=== PATIENT | female | born 2000 | race Caucasian/White ===

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

== ENCOUNTER 2021-04-30 23:02 | Outpatient (CLI) | payer OTHER ==
[2021-05-01 00:04] VITALS: BP 123/77; PULSE 100; RESP 16; TEMP 96.7
--- NOTE | 2021-05-19 12:27 | P.MSEPDOC ---
Presenting Problems - Arrival Data Date of Arrival on Unit: 04/30/21 Time of Arrival on Unit: 23:02 Mode of Transport: Ambulatory - Complaint OB-Reason for Admission/Chief Complaint: Rule Out PROM Comment: Pt presents to triage stating she thinks her water broke around 1900. Pt reports clear fluid. Pt states she did not feel a gush of fluid. Pt reports she just feels like she "leaks" every now and then if baby moves or if she moves a certain way Medical History - Information : 2 Para: 1 Term: 1 : 0 Abortions: Spontaneous or Elective: 0 Number of Living Children: 1 - Gestational Age Gestational Age by DAPHNE (wks/days): 35 Weeks and 0 Days Review of Systems - Review of Systems Constitutional: No problems Breast: No problems ENT: No problems Cardiovascular: No problems Respiratory: No problems Gastrointestinal: No problems Genitourinary: No problems Musculoskeletal: No problems Neurological: No problems Skin: No problems Vital Signs - Temperature Temperature: 96.7 F Temperature Source: Temporal Artery Scan - Pulse Pulse Oximetery Pulse Rate: 100 Pulse Assessment Method: Automatic Cuff - Respirations Respiratory Rate: 16 Oxygen Delivery Method: Room Air O2 Sat by Pulse Oximetry: 98 - Blood Pressure Right Arm Blood Pressure: 123/77 Blood Pressure Mean: 92 Blood Pressure Source: Automatic Cuff Medical Screen Scoring - Cervical Exam Dilation (cm): 0.5 Effacement (%): 60 Station: -1 Membranes: Intact - Uterine Contractions Frequency From (mins): 3 Frequency To (mins): 14 Duration From (seconds): 50 Duration To (seconds): 60 Intensity: Mild Resting: Soft to palpation - Assessment - Baby A Baseline FHR: 140 Heart Rate - NICHD Category: Category I (Normal) NST: Reactive Physician Notification - Physician Notified Physician Notified Date: 04/30/21 Physician Notified Time: 23:39 Physician: Ronaldo Higuera Order Received: Yes - Notification Comment Comment: Dr. Higuera called re: pt c/o SROM around 1900 with no gush of fluid but more. of an intermittent leaking, negative amnisure, reactive NST, contx pattern and pain. Orders received to perform SVE and if cervix remains unc hanged from check in the office. pt can be d/c home Maternal Triage Index - Maternal Triage Index Presenting for scheduled procedure w/no complaint: No - Stat/Priority 1 Stat Priority 1: No - Urgent/Priority 2 Urgent Priority 2: No - Prompt/Priority 3 Prompt Priority 3: Yes Criteria Met for Priority 3: c/o early labor signs and/or c/o SROM/leaking 34-36 6/7 weeks Disposition - Disposition OB Disposition: Discharge to home Discharge Date: 04/30/21 Discharge Time: 23:45 I agree with the RN Medical Screening Exam: Yes Physician's MSE Comment: I have neither seen nor examined the patient. Case reviewed; plan agreed upon as documented in EMR&OBIX.: Yes Diagnosis: RELATED CONDITIONS, UNSPECIFIED, THIRD TRIMESTER
== END 2021-04-30 23:45 | disposition home or self-care (01) ==
LOC: FBPOP 23:02
PROVIDERS: ATTEND Obstetrics & Gynecology
DX: O26.93 Pregnancy related conditions, unspecified, third trimester (principal); Z3A.35 35 weeks gestation of pregnancy
CPT/HCPCS: 59025; 84112; G0463; 99213

== ENCOUNTER 2021-05-29 12:20 | Inpatient (IN) | payer OTHER ==
[2021-05-30] MEDS ORDERED: OXYTOCIN 10 UNIT/ML 1 ML VIAL IM PRN (06:45)
[2021-05-30] MEDS ORDERED: CARBOPROST TROMETHAMINE 250 MCG/ML 1 ML AMP IM PRN (06:45)
[2021-05-30] MEDS ORDERED: LIDOCAINE 0.5% (PF) 5 MG/ML (50 ML SDV) SQ PRN (06:45)
[2021-05-30] MEDS ORDERED: OXYTOCIN 30 UNITS/500 ML NS 30 UNIT in SALINE 1 500ML.BAG IV SCH ×2 (06:45→18:00)
[2021-05-30] MEDS ORDERED: METHYLERGONOVINE 0.2 MG/ML 1 ML AMP IM PRN (06:45)
[2021-05-30] MEDS ORDERED: TERBUTALINE 1 MG/ML VIAL SQ PRN (06:45)
[2021-05-30] MEDS: LACTATED RINGERS 1,000 ML IV SCH ×3 (07:13→21:55)
[2021-05-30 07:21] LABS: Anisocytosis Slight; Basophils % (A) 0 %; Eosinophils # (A) 0.2 k/uL (0-0.7); Eosinophils % (A) 2 %; HCT 36.9 % (34.0-46.0); HGB 11.8 gm/dL (11.4-16.0); Lymphocytes # (A) 2.2 k/uL (1.0-4.8); Lymphocytes % (A) 22 %; MCH 26.4 pg (25.0-35.0); MCV 82.4 fL (80.0-100.0); Monocytes # (A) 0.6 k/uL (0-1.0); Monocytes % (A) 6 %; Neutrophils # (A) 6.8 k/uL (1.3-7.7); Neutrophils % (A) 68 %; Platelet Count 232 k/uL (150-450); RBC 4.48 m/uL (3.80-5.40); RDW 16.2 % (11.5-15.5); WBC 9.9 k/uL (3.8-10.6)
[2021-05-30] MEDS ORDERED: ROPIVACAINE 100 MG, fentaNYL (PF). 200 MCG in SODIUM CHLORIDE 0.9% 76 ML EPIDURAL ONE (13:25)
[2021-05-30] MEDS ORDERED: ACETAMINOPHEN TAB 325 MG TAB PO PRN (17:54)
[2021-05-30] MEDS ORDERED: diphenhydrAMINE 25 MG CAP PO PRN (17:54)
[2021-05-30] MEDS ORDERED: HYDROcodone/APAP 5-325MG 1 EACH TAB PO PRN (17:54)
[2021-05-30] MEDS ORDERED: SIMETHICONE 80 MG CHEWABLE PO PRN (17:54)
[2021-05-30] MEDS ORDERED: ZOLPIDEM 5 MG TAB PO PRN (17:54)
[2021-05-30] MEDS ORDERED: diphenhydrAMINE 50 MG/ML 1 ML VIAL IVP PRN ×2 (17:54)
[2021-05-30] MEDS ORDERED: BENZOCAINE/MENTHOL SPRAY 1 GM/SPRAY AEROSOL TOPICAL PRN (17:54)
[2021-05-30] MEDS ORDERED: HYDROcodone/APAP 7.5-325MG 1 EACH TAB PO PRN (17:54)
[2021-05-30] MEDS ORDERED: LANOLIN CREAM 5 GM TUBE TOPICAL PRN (17:54)
[2021-05-30] MEDS ORDERED: diphenhydrAMINE 50 MG CAP PO PRN (17:54)
[2021-05-30] MEDS ORDERED: HYDROCORTISONE 2.5% RECTAL CREAM 30 GM TUBE RECTAL PRN (17:54)
--- NOTE | 2021-05-30 18:00 | P.HPOB ---
History of Present Illness H&P Date: 05/30/21 Chief Complaint: 39-0/7 weeks, elective induction The patient is a 21-year-old 2 para 1001 admitted at 39-0/7 weeks as established by last menstrual period and confirmed by 9 week ultrasound. She is admitted for elective induction of labor with all signs reassuring, category 1 heart rate tracing. Her has been uncomplicated though she was found with a single umbilical artery and had reassuring testing weekly after 32 weeks. Group B strep status is negative. Obstetrical history: 2 para 1001 with 1 term vaginal delivery without complications. EDC of 06/05/2021 was established by last menstrual period and confirmed by 9 week ultrasound. Laboratory workup done Schutze blood type of O+ with a negative antibody screen. Rubella status is immune. Remainder of the laboratory workup was within normal limits. One hour Glucola was within normal limits and group B strep status is negative. Gynecologic history: Unremarkable with no history of any infections to include STDs. Review of Systems Review of systems is confined to history of present illness. Past Medical History Additional Past Medical History / Comment(s): History of kidney stones History of Any Multi-Drug Resistant Organisms: None Reported Past Surgical History: No Surgical Hx Reported Past Psychological History: No Psychological Hx Reported Smoking Status: Never smoker Past Alcohol Use History: None Reported Past Drug Use History: None Reported - Past Family History Mother Family Medical History: No Reported History Medications and Allergies Home Medications Medication Instructions Recorded Confirmed Type Pnv,Calcium 72/Iron/Folic Acid 1 each PO DAILY 06/04/18 05/30/21 History [ Plus Tablet] Iron 1 tab PO DAILY 05/30/21 05/30/21 History Allergies Allergy/AdvReac Type Severity Reaction Status Date / Time Penicillins AdvReac Rash/Hives Verified 05/30/21 06:43 Exam Vital Signs Temp Pulse Resp BP Pulse Ox 05/30/21 07:10 98.4 F 79 16 132/79 97 Intake and Output 05/30/21 05/30/21 05/30/21 06:59 14:59 22:59 Other: Weight 83.915 kg 83.915 kg In general, this is a well-developed, well-nourished white female in no acute distress. Her heart has a regular rhythm and rate without murmur. Her lungs are clear to auscultation bilaterally in all naylor. Her abdomen is gravid, nondistended, has normal active bowel sounds, soft, nontender, and without any palpable masses aside from uterine fundus. Her extremities are without any cyanosis, clubbing, or significant edema and are nontender to palpation bilaterally. Digital cervical examination demonstrates her surgery approximately 2-1/2 cm dilated, 50% effaced, the vertex in presentation at -2 station. Artificial rupture of membranes is carried out demonstrating clear fluid. Results Result Diagrams: 05/30/21 07:00 Abnormal Lab Results - Last 24 Hours (Table) 05/30/21 Range/Units 07:00 RDW 16.2 H (11.5-15.5) % Assessment and Plan (1) 39 weeks gestation of Current Visit: Yes Status: Acute Code(s): Z3A.39 - 39 WEEKS GESTATION OF SNOMED Code(s): 39796709 Plan: The patient has been admitted for elective induction of labor. Pitocin augment ation has been started and she has undergone artificial rupture of membranes. She will have close maternal and surveillance and expectant management will be practiced. She is a good candidate for either IV or epidural analgesia, whichever she may choose.
--- NOTE | 2021-05-30 18:02 | P.PROBDLV ---
Vaginal Delivery Note - . Vaginal Delivery Note: The patient is a 21-year-old 2 para 1001 admitted at 39-0/7 weeks by good dating parameters. She is admitted for elective induction with all signs reassuring. Her was, candidate only by finding of a single umbilical artery for which she underwent weekly testing after 32 weeks which was reassuring throughout. Group B strep status is negative. On labor and delivery, Pitocin augmentation was started and she underwent artificial rupture of membranes. She progressed into the active phase of labor and had an epidural catheter placed for analgesia. She made average progress throughout the day ultimately to complete and began to push. She was initially thought to be in the occiput posterior position. Pushing restitution of the head occiput anterior and she pushed over the course of approximately 25 minutes to a normal spontaneous vaginal delivery of a viable 8 lbs. 7 oz. baby boy with Apgars of 9 at 1 minute and 9 at 5 minutes. The placenta was delivered spontaneously, intact, and grossly normal with a grossly normal but velamentously and marginally inserted 2 vessel cord. There was a second-degree midline perineal laceration over the site of a previous laceration which was repaired in standard fashion using 3-0 chromic catgut without difficulty. Estimated blood loss was approximately 250 mL. There are no complications. All sponge, instrument, and needle counts were correct. Both mother and infant are resting comfortably in recovery.
[2021-05-30] MEDS: SENNOSIDES-DOCUSATE SODIUM 1 EACH TAB PO SCH (19:51)
[2021-05-31] MEDS: IBUPROFEN 600 MG TAB PO PRN ×2 (06:53→16:22)
[2021-05-31 07:30] LABS: Anisocytosis Slight; Basophils % (A) 0 %; Eosinophils # (A) 0.1 k/uL (0-0.7); Eosinophils % (A) 1 %; HCT 34.7 % (34.0-46.0); HGB 11.1 gm/dL (11.4-16.0); Lymphocytes # (A) 2.1 k/uL (1.0-4.8); Lymphocytes % (A) 18 %; MCH 26.8 pg (25.0-35.0); MCHC 32.1 g/dL (31.0-37.0); MCV 83.6 fL (80.0-100.0); Mean Platelet Volume 9.1; Monocytes # (A) 0.8 k/uL (0-1.0); Monocytes % (A) 7 %; Neutrophils # (A) 8.7 k/uL (1.3-7.7); Neutrophils % (A) 73 %; Platelet Count 206 k/uL (150-450); RBC 4.15 m/uL (3.80-5.40); RDW 16.1 % (11.5-15.5)
[2021-05-31] MEDS: SENNOSIDES-DOCUSATE SODIUM 1 EACH TAB PO SCH (07:51)
[2021-05-31 07:54] VITALS: RESP 16
--- NOTE | 2021-05-31 09:03 | P.DS ---
Providers Date of admission: 05/30/21 06:28 Expected date of discharge: 05/31/21 Attending physician: Ronaldo Higuera Primary care physician: Stated None - Discharge Diagnosis(es) (1) 39 weeks gestation of Current Visit: Yes Status: Acute (2) Normal spontaneous vaginal delivery Current Visit: Yes Status: Acute Hospital Course: The patient is a 21-year-old 2 para 1001 admitted at 39-0/7 weeks by good dating parameters. She is admitted for elective induction with all signs reassuring. Her has been only complicated by findings of a single umbilical artery for which the patient had weekly reassuring testing after 32 weeks. On labor and delivery, there is a category 1 heart rate tracing. She had Pitocin started followed by artificial rupture of membranes for clear fluid. She made progress into the active phase of labor and had an epidural catheter placed for analgesia. She then progressed ultimately to complete and pushed to a normal spontaneous vaginal delivery of a viable 8 lbs. 7 oz. baby boy with Apgars of 9 at 1 minute and 9 at 5 it's. Her course was unremarkable vital signs remaining stable and her temperature was afebrile throughout. She was deemed stable for discharge on day #1 was discharged home to follow-up in the office in 6 weeks' time routinely. Discharge instructions included calling for any significantly increased bleeding or foul-smelling lochia, significantly increased fever abdominal pain, perineal complaints, breast complaints, or anything also concerned her. She is additionally instructed to have nothing in the vagina for at least 6 weeks time to include intercourse. She understood her instructions and agrees follow up as noted above. Discharge medications included continued vitamins as she has opted to breast-feed. She was otherwise to use [id number] analgesic pain medications as needed. Maternal blood type is O+ and rubella status is immune. Procedures: #1. Pitocin induction over 2. Artificial rupture of membranes #3. Epidural analgesia #4. Normal spontaneous vaginal delivery #5. Repair of perineal laceration Patient Condition at Discharge: Stable Plan - Discharge Summary New Discharge Prescriptions: No Action Pnv,Calcium 72/Iron/Folic Acid [ Plus Tablet] 1 each PO DAILY Iron 1 tab PO DAILY Discharge Medication List Pnv,Calcium 72/Iron/Folic Acid [ Plus Tablet] 1 each PO DAILY 06/04/18 [History] Iron 1 tab PO DAILY 05/30/21 [History] Follow up Appointment(s)/Referral(s): Ronaldo Higuera MD [STAFF PHYSICIAN] - 6 Weeks Discharge Disposition: HOME SELF-CARE
[2021-05-31 16:12] VITALS: BP 114/79; PULSE 77; TEMP 98.1
== END 2021-05-31 18:32 | disposition home or self-care (01) | DRG 807 ==
LOC: 4FBP 05-30 06:28
PROVIDERS: ADMIT Obstetrics & Gynecology; ATTEND Obstetrics & Gynecology
PROC: 10E0XZZ Delivery of Products of Conception, External Approach (ICD-10-PCS; principal; 2021-05-30)
PROC: 0KQM0ZZ Repair Perineum Muscle, Open Approach (ICD-10-PCS; 2021-05-30)
PROC: 3E033VJ Introduction of Other Hormone into Peripheral Vein, Percutaneous Approach (ICD-10-PCS; 2021-05-30)
PROC: 10907ZC Drainage of Amniotic Fluid, Therapeutic from Products of Conception, Via Natural or Artificial Opening (ICD-10-PCS; 2021-05-30)
DX: O69.89X0 Labor and delivery complicated by other cord complications, not applicable or unspecified (principal); Z37.0 Single live birth; O70.1 Second degree perineal laceration during delivery; Z3A.39 39 weeks gestation of pregnancy; Z87.442 Personal history of urinary calculi
CPT/HCPCS: 85025; 86850; 86900; 86901

== ENCOUNTER 2023-03-17 11:52 | Outpatient (CLI) | payer OTHER ==
[2023-03-17] MEDS ORDERED: LACTATED RINGERS 1,000 ML IV SCH (12:00)
[2023-03-17 12:34] LABS: Basophils % (A) 0 %; Eosinophils # (A) 0.1 k/uL (0-0.7); Eosinophils % (A) 2 %; HCT 32.3 % (34.0-46.0); HGB 10.4 gm/dL (11.4-16.0); Hypochromasia Slight; Lymphocytes # (A) 2.2 k/uL (1.0-4.8); Lymphocytes % (A) 34 %; MCH 27.1 pg (25.0-35.0); MCHC 32.1 g/dL (31.0-37.0); MCV 84.5 fL (80.0-100.0); Mean Platelet Volume 8.2; Monocytes # (A) 0.5 k/uL (0-1.0); Monocytes % (A) 7 %; Neutrophils # (A) 3.7 k/uL (1.3-7.7); Neutrophils % (A) 55 %; Platelet Count 258 k/uL (150-450); RBC 3.83 m/uL (3.80-5.40); RDW 14.9 % (11.5-15.5); WBC 6.7 k/uL (3.8-10.6)
[2023-03-17 12:48] LABS: Appearance,Urine Cloudy (Clear); Bacteria,Urine Moderate /hpf; Bilirubin,Urine Negative (Negative); Blood,Urine Large (Negative); Color,Urine Yellow; Glucose,Urine (UA) Negative (Negative); Ketones,Urine Negative (Negative); Leukocyte Esterase,Urine Large (Negative); Mucus,Urine Many /hpf; Nitrite,Urine Negative (Negative); PH, Urine 6.5 (5.0-8.0); Protein,Urine 1+ (Negative); RBC,Urine >182 /hpf (0-5); Specific Gravity,Urine 1.019 (1.001-1.035); Squamous Epithelial Cell,Urine 21 /hpf (0-4); Urobilinogen,Urine <2.0 mg/dL (<2.0); WBC,Urine 10 /hpf (0-5)
[2023-03-17 12:49] LABS: ALT 16 U/L (4-34); AST 23 U/L (14-36); African American GFR (CKD) >90 (>60 ml/min/1.73 sqM); Blood Urea Nitrogen 6 mg/dL (7-17); LDH 109 U/L (120-246); Non-African American GFR(CKD) >90 (>60 ml/min/1.73 sqM)
[2023-03-17 12:53] LABS: Creatinine,Urine Random 185.9 mg/dL; Protein/Creatinine Ratio,Urine 0.215
[2023-03-17 13:40] VITALS: BP 116/72; PULSE 92; RESP 16; TEMP 98
--- NOTE | 2023-03-18 08:01 | P.MSEPDOC ---
Presenting Problems - Arrival Data Date of Arrival on Unit: 03/17/23 Time of Arrival on Unit: 11:52 Mode of Transport: Ambulatory - Complaint OB-Reason for Admission/Chief Complaint: Other Comment: pt sent here from office for rule out uti, iv antibiotics and pih work up Medical History - Information : 3 Para: 2 Term: 2 : 0 Abortions: Spontaneous or Elective: 0 Number of Living Children: 2 - Gestational Age Gestational Age by DAPHNE (wks/days): 29 Weeks and 3 Days Review of Systems - Review of Systems Constitutional: No problems Breast: No problems ENT: No problems Cardiovascular: No problems Respiratory: No problems Gastrointestinal: No problems Genitourinary: No problems Musculoskeletal: No problems Neurological: No problems Skin: No problems Vital Signs - Temperature Temperature: 98.0 F Temperature Source: Temporal Artery Scan - Pulse Right Brachial Pulse Rate: 92 Pulse Assessment Method: Automatic Cuff - Respirations Respiratory Rate: 16 Oxygen Delivery Method: Room Air O2 Sat by Pulse Oximetry: 98 - Blood Pressure Right Arm Blood Pressure: 116/72 Blood Pressure Mean: 86 Blood Pressure Source: Automatic Cuff Medical Screen Scoring - Assessment - Baby A Baseline FHR: 135 Heart Rate - NICHD Category: Category I (Normal) NST: Reactive Physician Notification - Physician Notified Physician Notified Date: 03/17/23 Physician Notified Time: 13:17 Physician: Duane Narayan Order Received: Yes (dc home) Maternal Triage Index - Scheduled/Requesting Priority 5 Scheduled/Requesting Priority 5: Yes Criteria Met for Priority 5: orders sent with pt from Dr Narayan Disposition - Disposition OB Disposition: Discharge to home, Written follow up instructions reviewed Discharge Date: 03/17/23 Discharge Time: 13:30 I agree with the RN Medical Screening Exam: Yes Case reviewed; plan agreed upon as documented in EMR&OBIX.: Yes Diagnosis: RELATED CONDITIONS, UNSPECIFIED, THIRD TRIMESTER (Patient presented from the office for evaluation of elevated blood pressure. Blood pressures here in labor and delivery were completely normal preeclampsia labs are negative as well. Patient did have a urinalysis and history consistent with possible kidney stone therefore I did give her a dose of Ancef and some oral antibiotics until the urine culture returns. Patient follow up in the office as instructed.)
== END 2023-03-17 13:30 | disposition home or self-care (01) ==
LOC: FBPOP 11:52
PROVIDERS: ATTEND Obstetrics & Gynecology
DX: O26.93 Pregnancy related conditions, unspecified, third trimester (principal); Z3A.29 29 weeks gestation of pregnancy; Z88.0 Allergy status to penicillin
CPT/HCPCS: 59025; 96365; 36415; 82570; 84156; 82565; 83615; 84450; 84460; 84520; 84550; 85025; 81001; J0690

== ENCOUNTER → 2024-03-11 | Outpatient (CLI) | payer OTHER ==
--- NOTE | 2024-03-11 23:33 | US ---
EXAMINATION TYPE: US abdomen complete DATE OF EXAM: 03/11/2024 COMPARISON: Renal US 03/19/2023 CLINICAL INDICATION: Female, 24 years old with history of R74.8 ABNORMAL LEVELS OF OTHER SERUM ENZYME S; TECHNIQUE: Multiple sonographic images of the abdomen are obtained. FINDINGS: EXAM MEASUREMENTS: Liver Length: 15.3 cm Gallbladder Wall: 0.29 cm CBD: Obscured Spleen: 11.6 cm Right Kidney: 10.3 x 5.7 x 4.9 cm Left Kidney: 11.1 x 5.0 x 5.1 cm [facility] RECEPTIONIST NOTES: Exam is limited due to gas. Pancreas: Limited visibility. Liver: Limited. *Appears coarse in echotexture. -Indistinct, hypoechoic area seen near the gallbladder: 1.5 x 1.5 x 1.6 cm. Gallbladder: Appears anechoic. Evidence for sonographic Groves's sign: No CBD: Obscured Spleen: Appears wnl Right Kidney: *Hyperechoic focus seen at mid: 0.7 x 0.6 x 0.3 cm. Renal pelvis appears dilated. Left Kidney: No hydronephrosis or masses seen Upper IVC: Appears wnl Abd Aorta: Limited visibility of proximal segment. IMPRESSION: 1. There may be a right nonobstructing renal stone present.
== END | disposition home or self-care (01) ==
LOC: RADUSWWP 06:58
PROVIDERS: ATTEND Family Medicine
DX: R74.8 Abnormal levels of other serum enzymes (principal)
CPT/HCPCS: 76700